=== PATIENT | male | born 1970 | race Two or more races ===

== ENCOUNTER 2019-04-21 23:39 | Observation (INO) ==
[2019-04-22] MEDS ORDERED: ONDANSETRON 4 MG/2 ML VIAL IV STA (00:06)
[2019-04-22] MEDS ORDERED: methylPREDNISolone SOD SUC 125 MG/2 ML VIAL IV STA (00:06)
[2019-04-22] MEDS ORDERED: ALBUTEROL/IPRATROPIUM 3 ML NEB RESP TX STA (00:06)
[2019-04-22] MEDS ORDERED: SODIUM CHLORIDE 0.9% 500 ML IV STA (00:06)
[2019-04-22] MEDS ORDERED: ASPIRIN 325 MG TABLET PO STA (00:06)
[2019-04-22] MEDS ORDERED: ALUM/MAG/SIMETH/LIDO VISC 1:1 30 ML BOTTLE PO STA (00:06)
[2019-04-22] MEDS ORDERED: NITROGLYCERIN 2% OINT 1 INCH/GM PACK TOP STA (00:06)
[2019-04-22] MEDS ORDERED: MORPHINE 4 MG/1 ML VIAL IV STA (00:06)
[2019-04-22 00:36] LABS: INR 0.9; PT Patient Result 9.4 SECS
[2019-04-22 00:49] LABS: Albumin 4.1 G/DL (3.4-5.0); Bilirubin,Total 0.4 MG/DL (0.2-1.0); Osmolality,Calculated 292.3 MOS/KG (273-304); Total Protein 7.7 G/DL (6.4-8.3)
[2019-04-22 01:09] LABS: Basophils % 0.2 % (0.0-0.8); Eosinophils # 0.1 10*3/uL (0.0-0.87); Eosinophils % 1.7 % (0.00-10.9); Hematocrit 44.3 VOL% (42.0-52.0); Hemoglobin 14.6 GM/DL (14.0-18.0); Immature Granulocytes % 0.7 %; Immature Granulocytes Absolute 0.06 #; Lymphocytes # 2.2 10*3/uL (1.4-4.0); Lymphocytes % 26.6 % (21.2-54.2); Mean Corpuscular Volume 82.5 FL (87-102); Mean Platelet Volume 10.4 FL (9.6-12.0); Monocytes % 8.9 % (1.7-12.7); Neutrophils % 61.9 % (38.7-73.9); Platelet Count 265 T/CUMM (130-400); Red Blood Count 5.37 MC/CUMM (3.8-5.5); White Blood Count 8.3 T/CUMM (4-12)
[2019-04-22 01:54] LABS: Apearance,Urine CLEAR (Clear); Bilirubin,Urine Negative (Negative); Blood, Urine Negative (Negative); Glucose,Urine (UA) >=500 mg/dL (Negative); Ketones,Urine 5 mg/dL (Negative); Mucus,Urine Occasional /LPF (Occasional); Nitrite,Urine Negative (Negative); Protein,Urine Negative; RBC,Urine 1 /HPF (0-4); Squamous Epithelial Cell,Urine Occasional /HPF (0-10); Urine Color Yellow (Yellow); Urine Specific Gravity 1.039 (1.001-1.035); Urine Urobilinogen < 2.0 EU/DL (0.2-1.0); WBC,Urine <1 /HPF (0-6)
[2019-04-22 02:12] LABS: Barbiturates Screen,Urine Negative (Negative); Benzodiazepines Screen,Urine Negative (Negative); Cannabinoid Screen,Urine Negative (Negative); Opiate Screen,Urine Negative (Negative); Phencyclidine Screen,Urine Negative (Negative)
[2019-04-22] MEDS ORDERED: NICOTINE 21 MG/24 HR PATCH TRANSDERM PRN (06:13)
[2019-04-22] MEDS ORDERED: ACETAMINOPHEN 325 MG TABLET PO PRN (06:13)
[2019-04-22] MEDS ORDERED: GLUCAGON 1 MG VIAL IM PRN (06:13)
[2019-04-22] MEDS ORDERED: MORPHINE 4 MG/1 ML VIAL IV PRN (06:13)
[2019-04-22] MEDS ORDERED: ONDANSETRON 4 MG/2 ML VIAL IV PRN (06:13)
[2019-04-22] MEDS ORDERED: diphenhydrAMINE CAP 25 MG CAPSULE PO PRN (06:13)
[2019-04-22] MEDS ORDERED: DEXTROSE 50% 25 GM/50 ML VIAL IV PRN (06:13)
[2019-04-22 06:18] VITALS: BP 118/69
[2019-04-22] MEDS ORDERED: LEVOFLOXACIN INJ 500 MG in PREMIX 1 EACH IV SCH (06:30)
[2019-04-22] MEDS ORDERED: ALBUTEROL/IPRATROPIUM 3 ML NEB RESP TX SCH (07:00)
[2019-04-22 07:07] LABS: Risk Ratio 4.63
[2019-04-22] MEDS ORDERED: INSULIN REGULAR 100 UNIT/ML SUBCUT SCH (07:30)
[2019-04-22] MEDS ORDERED: PANTOPRAZOLE 40 MG TABLET PO SCH (09:00)
== END 2019-04-22 08:40 | disposition home or self-care (01) ==
LOC: N.ED 23:39 → N.EDINP 23:39
PROVIDERS: ADMIT Family Medicine; ATTEND Family Medicine